=== PATIENT | female | born 1990 | race Caucasian/White ===

== ENCOUNTER 2016-08-26 13:55 | Emergency (ER) | payer OTHER ==
[2016-10-30] MEDS ORDERED: IBUPROFEN800 MG PO ×2 (07:52→10:00)
[2016-10-30] MEDS ORDERED: ONDANSETRON ODT8 MG PO (07:52)
[2016-10-30] MEDS ORDERED: CITALOPRAM HBR20 MG PO (07:53)
[2016-10-30] MEDS ORDERED: TYLENOL 500 MG500 MG PO (07:53)
[2016-10-30] MEDS ORDERED: COLACE 100MG C100 MG PO (09:59)
[2016-10-30] MEDS ORDERED: PERCOCET 5-3251 EACH PO (10:01)
== END 2016-08-26 18:52 | disposition home or self-care (01) ==
LOC: ER1 13:55
DX: J40 Bronchitis, not specified as acute or chronic (principal); F17.200 Nicotine dependence, unspecified, uncomplicated; F41.9 Anxiety disorder, unspecified; Z79.899 Other long term (current) drug therapy
CPT/HCPCS: 81001; 99283

== ENCOUNTER → 2016-10-19 | Outpatient (CLI) | payer OTHER ==
[~2016-10-19] MED LIST: CITALOPRAM HBR20 MG PO; COLACE 100MG C100 MG PO; IBUPROFEN800 MG PO; ONDANSETRON ODT8 MG PO; PERCOCET 5-3251 EACH PO; TYLENOL 500 MG500 MG PO
[2016-10-19 13:05] LABS: HEMOGLOBIN 13.8 gm/dl (12.3-15.3); RED BLOOD COUNT 4.51 M/UL (4.00-5.10); WHITE BLOOD COUNT 13.7 K/UL (4.5-11.0)
== END ==
LOC: OPSV2 12:29
PROVIDERS: Obstetrics & Gynecology
DX: Z01.812 Encounter for preprocedural laboratory examination (principal); N80.9 Endometriosis, unspecified
CPT/HCPCS: 36415; 81001; 85025